=== PATIENT | female | born 1955 | race Caucasian/White ===

== ENCOUNTER → 2022-07-23 08:37 | Outpatient (CLI) | payer OTHER, SELFPAY ==
[2022-07-23 09:25] LABS: Appearance Urine UA CLEAR; Bilirubin Urine UA NEGATIVE (NEGATIVE); Color Urine UA YELLOW; Glucose Urine UA NEGATIVE (Negative); Ketones Urine UA NEGATIVE (NEGATIVE); Leukocyte Esterase Urine UA 3+ (NEGATIVE); Nitrite Urine UA NEGATIVE (Negative); Occult Blood Urine UA NEGATIVE (Negative); Protein Urine UA NEGATIVE (Negative); Specific Gravity Urine UA <=1.005 (1.000-1.035); Urobilinogen Urine UA 0.2 E.U./dL (0.2)
[2022-07-23 09:27] LABS: pH Urine UA 5.5 (4.5-8.0)
[2022-07-23 09:29] LABS: Bacteria Urine Moderate (10-30); Culture Indicated Urine Specimen Cultured; RBC Urine None Seen (0-5/HPF); Squamous Epithelial Cell Urine 1-5 /HPF (0-5/HPF); WBC Urine 5-10/HPF (0-5/HPF)
== END ==
PROVIDERS: PCP Family Medicine; Referring Provider Family Medicine; Visit Provider Family Medicine
DX: R31.9 Hematuria, unspecified (principal)
CPT/HCPCS: 81001; 87077; 87086; 87186

== ENCOUNTER → 2022-08-03 07:53 | Outpatient (CLI) | payer OTHER, SELFPAY ==
[2022-08-03 08:37] LABS: Add Manual Diff / Slide Review NO; Basophils Absolute Auto 0 /uL (0-100); Basophils Percent Auto 0.7 % (0-2); Eosinophils Absolute Auto 0 /uL (0-450); Eosinophils Percent Auto 1.5 % (2-4); Hematocrit 40.5 % (36-46); Hemoglobin 13.8 g/dL (12.0-16.0); Lymphocytes Absolute Auto 1000 /uL (1100-4500); Lymphocytes Percent Auto 30.6 % (25-40); Mean Corpuscular Hemoglobin 31.3 PG (26-34); Monocytes Absolute Auto 200 /uL (0-900); Monocytes Percent Auto 7.1 % (3-14); Neutrophils Absolute Auto 2000 /uL (1500-7000); Neutrophils Percent Auto 60.1 % (50-75); Platelet Count 264 X10^3/uL (150-400); White Blood Cell Count 3.4 X10^3/uL (4.5-11.0)
[2022-08-03 09:22] LABS: Alanine Aminotransferase 18 IU/L (<35); Albumin Globulin Ratio 1.6 (1.0-2.8); Alkaline Phosphatase 73 U/L (38-126); Aspartate Aminotransferase 27 IU/L (14-36); BUN Creatinine Ratio 24.6 (6-22); Bilirubin Total 0.5 mg/dL (0.2-1.3); Blood Urea Nitrogen 16 mg/dL (7-17); Calcium 9.1 mg/dL (8.4-10.2); Carbon Dioxide 32 mmol/L (22-32); Chloride 102 mmol/L (98-107); Estimated Glomerular Filt Rate > 60 mL/min (>60); Globulin 2.5 g/dL (1.7-4.1); Glucose 95 mg/dL (80-110); HEMOLYSIS < 15 (0-50); Sodium 139 mmol/L (137-145); Total Protein 6.5 g/dL (6.3-8.2)
[2022-08-03 09:25] LABS: Vitamin D 25 Hydroxy (D3) 43.8 ng/mL (30.0-100.0)
[2022-08-03 09:45] LABS: Ferritin 23 ng/mL (11-264)
== END ==
PROVIDERS: PCP Family Medicine; Referring Provider Family Medicine; Visit Provider Family Medicine
DX: E55.9 Vitamin D deficiency, unspecified (principal); E78.00 Pure hypercholesterolemia, unspecified
CPT/HCPCS: 36415; 80053; 82306; 82728; 85025

== ENCOUNTER → 2023-02-02 09:40 | Outpatient (CLI) | payer MEDICARE, OTHER, SELFPAY ==
[2023-02-02 11:12] LABS: Cholesterol 250 mg/dL (140-199); HDL Cholesterol 85 mg/dL (40-60); LDL Cholesterol Calculated 155 mg/dL (<100); Triglycerides 52 mg/dL (35-150)
[2023-02-02 11:16] LABS: High Sensitivity CRP - Cardiac < 0.3 mg/L (1.0-3.0)
== END ==
PROVIDERS: PCP Family Medicine; Referring Provider Family Medicine; Visit Provider Family Medicine
DX: E78.5 Hyperlipidemia, unspecified (principal)
CPT/HCPCS: 36415; 80061; 86140

== ENCOUNTER 2023-02-21 08:58 | Day surgery (SDC) | payer MEDICARE, OTHER, SELFPAY ==
[2023-02-21 09:28] VITALS: BMI 24.7
[2023-02-21 09:45] VITALS: BP 131/69; PULSE 61; RESP 16; TEMP 36.2; O2SAT 100
[2023-02-21] MEDS: LACTATED RINGERS 1,000 ML 42 ML IV (09:48)
--- NOTE | 2023-02-21 11:00 | P.HP_ITS ---
History of Present Illness History of Present Illness Date Patient Seen: 02/21/23 Time Patient Seen: 11:00 Chief complaint: Colonoscopy Narrative: h/o colon polyps, was on a 3 year recall, last scope was 6 years ago, no symptoms. [facility] Medical History Hearing decreased Sleep apnea (~2018) Surgical History Anesthesia History of section (~1986) Family History Father Accident Mother Cancer Hypertension Hyperlipidemia Social History household members: spouse Smoking Status: Former smoker Tobacco: How many years used: 10 alcohol intake: current substance use type: does not use Meds Home Medications and Allergies Home Medications Medication Instructions Recorded Confirmed Type estradiol 0.01% (0.1 mg/gram) 1 g vaginal 2XW #42.5 grams 01/25/23 02/21/23 Rx vaginal cream Allergies Allergy/AdvReac Type Severity Reaction Status Date / Time No Known Drug Allergies Allergy Verified 02/21/23 09:27 Review of Systems Review of Systems ROS: Yes All systems reviewed with the patient and are negative except as otherwise documented Exam Vital Signs (past 8 hours): - 02/21/23 09:45 Temperature 97.2 F L Pulse Rate 61 Respiratory Rate 16 Blood Pressure 131/69 Pulse Oximetry 100 Oxygen Delivery Method Room Air Oxygen Delivery Method Room Air Const General: cooperative and healthy appearing [facility] Head: normocephalic and atraumatic Eyes General: appearance normal, both eyes and all related structures Sclera: sclerae normal Neck Neck: trachea midline Resp Effort & Inspection: normal respiratory effort and able to speak in complete sentences Cardio Rate: regular rate Rhythm: regular rhythm GI Palpation: soft and No tender Skin General: no rashes or lesions noted and turgor normal Neuro General: patient alert, patient awake and patient oriented x3 Cognition: normal cognition Psych Mental Status: mental status grossly normal Judgment: judgment good Assessment & Plan Assessment & Plan narrative: H/o colon polyps Plan: colonoscopy with anesthesia. Time Spent With Patient Time with patient: less than 30 minutes
--- NOTE | 2023-02-21 11:18 | PM.OP.COLON ---
Operative Date/Time/Diagnoses Date of procedure: 02/21/23 Time of procedure: 11:18 Pre-op diagnosis: History of colon polyps Post-op diagnosis: same Procedure & Clinicians Study performed: Colonoscopy with anesthesia Same procedure as scheduled: Yes Indications: History of colon polyps Surgeon: Herlinda Rivas Procedure Notes Procedure in detail: Preop diagnosis: History of colon polyps Postop diagnosis: Same Operative procedure: Colonoscopy with anesthesia Surgeon: Chastity Rivas MD Findings: No polyps identified. No diverticulosis. Procedure: Patient placed in a lateral position. Rectal exam performed showing normal tone no masses. Colonoscope inserted into the rectum and advanced to ileocecal valve with minimal difficulty. Insufflation extraction of the scope including retroflex in the rectum and the above findings Impression: No polyps identified after a 6 year interval. No significant diverticulosis Plan: Repeat colonoscopy in 5 years unless otherwise indicated by change in clinical condition Specimen(s): none sent Complications: none Post-procedure Recommendations: Colonoscopy in 5 years Follow up: as needed Disposition: PACU
[2023-02-21 11:20] VITALS: BP 107/70; PULSE 69; RESP 13; TEMP 36.7; O2SAT 95
[2023-02-21 11:25] VITALS: BP 109/69; PULSE 65; RESP 13; O2SAT 98
[2023-02-21 11:31] VITALS: PULSE 69; RESP 13; O2SAT 98
[2023-02-21 11:38] VITALS: BP 113/72; PULSE 66; RESP 13; O2SAT 98
== END 2023-02-21 11:50 | disposition home or self-care (01) ==
PROVIDERS: PCP Family Medicine; Referring Provider Surgery; Visit Provider Surgery
PROC: 0DJD8ZZ Inspection of Lower Intestinal Tract, Via Natural or Artificial Opening Endoscopic (ICD-10-PCS; CPT 45378; principal; 2023-02-21 10:15)
DX: Z12.11 Encounter for screening for malignant neoplasm of colon (principal); Z86.010 Personal history of colon polyps
CPT/HCPCS: G0105; J2704

== ENCOUNTER 2023-10-25 14:17 | Emergency (ER) | payer MEDICARE, OTHER, SELFPAY ==
[2023-10-25] VITALS (7 sets, daily range): BP systolic 145–162; BP diastolic 69–75; PULSE 59–68; RESP 14–20; TEMP 37.1; O2SAT 95–99; BMI 24.7
--- NOTE | 2023-10-25 14:24 | DI.RAD.S_ITS ---
PROCEDURE: XR CHEST 1V INDICATIONS: chest pain TECHNIQUE: One view of the chest was acquired. COMPARISON: None. FINDINGS: Surgical changes and devices: None. Lungs and pleura: Lungs are clear. No pleural effusions or pneumothorax. Mediastinum: Mediastinal contours appear normal. Heart size is normal. Bones and chest wall: No suspicious bony lesions. Overlying soft tissues appear unremarkable. IMPRESSION: No acute cardiopulmonary abnormality is seen. Dictated by: Wil Bonilla M.D. on 10/25/2023 at 15:34 Approved by: Wil Bonilla M.D. on 10/25/2023 at 15:34
--- NOTE | 2023-10-25 14:24 | EKG_ITS ---
[address] [address] Test Date: 2023-10-25 Pat Name: Blossom Bowman Department: [facility] Room: Gender: Female Systems Administration Analyst: HERMES : 1955 Requested By: Order Number: [id number] Reading MD: Osmani Tom Measurements Intervals [place] Rate: 59 P: 64 MT: 134 QRS: 10 QRSD: 82 T: 46 QT: 414 QTc: 409 Interpretive Statements Sinus bradycardia Electronically Signed On 10-31-2023 9:08:29 PDT by Osmani Tom
[2023-10-25 15:00] LABS: Add Manual Diff / Slide Review NO; Basophils Absolute Auto 0 /uL (0-100); Basophils Percent Auto 0.5 % (0-2); Eosinophils Absolute Auto 100 /uL (0-450); Eosinophils Percent Auto 2.6 % (2-4); Hemoglobin 13.1 g/dL (12.0-16.0); Lymphocytes Absolute Auto 1200 /uL (1100-4500); Lymphocytes Percent Auto 29.9 % (25-40); Mean Corpuscular HGB Conc 33.6 % (30-36); Mean Corpuscular Hemoglobin 31.1 PG (26-34); Mean Corpuscular Volume 92.7 fL (80-100); Monocytes Absolute Auto 300 /uL (0-900); Neutrophils Absolute Auto 2300 /uL (1500-7000); Platelet Count 289 X10^3/uL (150-400); Red Blood Cell Count 4.21 X10^6/uL (4.0-5.2); Red Cell Distribution Width 13.8 % (11.6-14.8); White Blood Cell Count 3.9 X10^3/uL (4.5-11.0)
[2023-10-25 15:06] LABS: Prothrombin Time 11.5 SECONDS (9.4-12.5)
[2023-10-25 15:09] LABS: PTT Partial Thromboplastin Tim 31 SECONDS (25.1-36.5)
[2023-10-25 15:10] LABS: Alanine Aminotransferase 13 IU/L (<35); Albumin 4.2 g/dL (3.5-5.0); Albumin Globulin Ratio 1.8 (1.0-2.8); Alkaline Phosphatase 70 U/L (38-126); Aspartate Aminotransferase 26 IU/L (14-36); BUN Creatinine Ratio 22.5 (6-22); Bilirubin Total 0.4 mg/dL (0.2-1.3); Blood Urea Nitrogen 18 mg/dL (7-17); Calcium 8.7 mg/dL (8.4-10.2); Carbon Dioxide 28 mmol/L (22-32); Chloride 106 mmol/L (98-107); Creatine Kinase 69 U/L (30-135); Estimated Glomerular Filt Rate > 60 mL/min (>60); Globulin 2.3 g/dL (1.7-4.1); Glucose 96 mg/dL (80-110); HEMOLYSIS < 15 (0-50); Lipase 67 U/L (23-300); Magnesium 2.1 mg/dL (1.6-2.3); Sodium 140 mmol/L (137-145); Total Protein 6.5 g/dL (6.3-8.2)
[2023-10-25 15:21] LABS: NT-proBNP (BNP-Adult 18+) 68 pg/mL (<125); Troponin I < 0.012 ng/mL (0.01-0.034)
--- NOTE | 2023-10-25 16:35 | ED_ITS ---
HPI - Chest Pain General Chief Complaint: Chest Pain Stated Complaint: chest pressure, fatigue Time Seen by Provider: 10/25/23 16:34 Source: patient Mode of arrival: Ambulatory Limitations: no limitations History of Present Illness HPI narrative: 68-year-old female with dry cough since last week, has been having chest discomfort with coughing, some shortness of breath. No fevers or chills. No history of known coronary artery disease. No history of blood clots to legs or lungs. She does not have any leg pain or swelling symptoms. Related Data Previous Rx's Medication Instructions Recorded estradiol 0.01% (0.1 mg/gram) 1 g vaginal 2XW #42.5 grams 01/25/23 vaginal cream albuterol sulfate 90 mcg/actuation 2 puff inhalation Q6H PRN 10/25/23 aerosol inhaler shortness of breath or wheezing #6.7 grams Allergies Allergy/AdvReac Type Severity Reaction Status Date / Time No Known Drug Allergies Allergy Verified 02/21/23 09:27 Review of Systems Review of Systems Narrative: see HPI Patient History Medical History Hearing decreased Sleep apnea (~2018) Surgical History Anesthesia History of section (~1986) Family History Father Accident Mother Cancer Hypertension Hyperlipidemia Social History household members: spouse Smoking Status: Former smoker Tobacco: How many years used: 10 alcohol intake: current substance use type: does not use Smoking Status: Former smoker alcohol intake frequency: 0-2 drinks per day Substance Use Type: marijuana Exam Initial Vital Signs Initial Vital Signs: Vital Signs Temperature 98.7 F 10/25/23 14:19 Pulse Rate 68 10/25/23 14:19 Respiratory Rate 20 10/25/23 14:19 Blood Pressure 146/69 H 10/25/23 14:19 Pulse Oximetry 99 10/25/23 14:19 Oxygen Delivery Method Room Air 10/25/23 14:19 Const General: cooperative HENMT Head: normocephalic and atraumatic Nose: external nose normal Face and sinus: face symmetric Mouth: oral mucosae normal Throat: tonsils normal and uvula midline Eyes Eyelids: eyelids normal Conjunctivae: conjunctivae normal Sclera: sclerae normal Pupils: PERRL EOM: EOM intact bilaterally Neck Neck: normal visual inspection, trachea midline and No midline deformity Chest Chest: normal inspection of the chest Resp Effort & Inspection: normal respiratory effort, able to speak in complete sentences, no respiratory distress and no use of accessory muscles Auscultation: clear to auscultation bilaterally, no rales, no rhonchi and no wheezes Cardio Rate: regular rate Rhythm: regular rhythm Heart Sounds: no click, no gallops and no murmurs GI Inspection: non-distended Palpation: soft, No guarding and No tender Back/Spine/Pelvis Back: No CVA tenderness Cervical Spine: No pain with cervical ROM Skin General: no rashes or lesions noted and No jaundice Neuro General: patient alert and no focal motor deficits Speech: speech normal Extrem General: full ROM and no pedal edema Psych Attitude: cooperative Thought Content: normal Course Orders Ordered: Discontinued Medications Aspirin (Aspirin 81 Mg Chew Tab) 324 mg PO NOW ONE Stop: 10/25/23 14:25 Vital Signs Vital signs: Vital Signs - 8 hr 10/25/23 14:19 10/25/23 14:29 10/25/23 14:30 Temperature 98.7 F Pulse Rate 68 60 63 Respiratory Rate 20 Blood Pressure 146/69 H Pulse Oximetry 99 99 98 Oxygen Delivery Method Room Air 10/25/23 14:47 10/25/23 14:47 10/25/23 15:00 Temperature Pulse Rate 62 62 Respiratory Rate 17 16 Blood Pressure 160/75 H Pulse Oximetry 98 98 Oxygen Delivery Method 10/25/23 15:00 10/25/23 15:30 10/25/23 15:30 Temperature Pulse Rate 59 L Respiratory Rate 15 Blood Pressure 162/71 H 145/72 H Pulse Oximetry 98 Oxygen Delivery Method 10/25/23 16:00 10/25/23 16:00 Temperature Pulse Rate 61 Respiratory Rate 14 Blood Pressure 150/71 H Pulse Oximetry 99 Oxygen Delivery Method MDM - Chest Pain Lab Data Attestation: I reviewed the patient's lab results. 10/25/23 14:45 10/25/23 14:45 Labs: Lab Results 10/25/23 10/25/23 Range/Units 14:45 14:57 WBC 3.9 L (4.5-11.0) X10^3/uL RBC 4.21 (4.0-5.2) X10^6/uL Hgb 13.1 (12.0-16.0) g/dL Hct 39.0 (36-46) % MCV 92.7 (80-100) fL MCH 31.1 (26-34) PG MCHC 33.6 (30-36) % RDW 13.8 (11.6-14.8) % Plt Count 289 (150-400) X10^3/uL Neut % (Auto) 60.0 (50-75) % Lymph % (Auto) 29.9 (25-40) % [place] % (Auto) 7.0 (3-14) % Eos % (Auto) 2.6 (2-4) % Baso % (Auto) 0.5 (0-2) % Neut # (Auto) 2300 (3443-8966) /uL Lymph # (Auto) 1200 (3212-6957) /uL [place] # (Auto) 300 (0-900) /uL Eos # (Auto) 100 (0-450) /uL Baso # (Auto) 0 (0-100) /uL PT 11.5 (9.4-12.5) SECONDS INR 1.0 (0.9-1.3) APTT 31 (25.1-36.5) SECONDS Sodium 140 (137-145) mmol/L Potassium 4.0 (3.4-5.1) mmol/L Chloride 106 (98-107) mmol/L Carbon Dioxide 28 (22-32) mmol/L BUN 18 H (7-17) mg/dL Creatinine 0.80 (0.52-1.04) mg/dL Estimated GFR > 60 (>60) mL/min BUN/Creatinine Ratio 22.5 H (6-22) Glucose 96 (80-110) mg/dL Calcium 8.7 (8.4-10.2) mg/dL Magnesium 2.1 (1.6-2.3) mg/dL Total Bilirubin 0.4 (0.2-1.3) mg/dL AST 26 (14-36) IU/L ALT 13 (<35) IU/L Alkaline Phosphatase 70 (38-126) U/L Total Creatine Kinase 69 (30-135) U/L Troponin I < 0.012 < 0.012 (0.01-0.034) ng/mL NT-Pro-B Natriuret Pep 68 (<125) pg/mL Total Protein 6.5 (6.3-8.2) g/dL Albumin 4.2 (3.5-5.0) g/dL Globulin 2.3 (1.7-4.1) g/dL Albumin/Globulin Ratio 1.8 (1.0-2.8) Lipase 67 (23-300) U/L ECG Data Attestation: I personally reviewed and interpreted this ECG as follows: Interpretation: Sinus bradycardia with rate of 59, no obvious ST segment elevation or depression symptoms. NV 134, QRS 82, QTC 409. MDM Narrative Medical decision making narrative: URI symptoms, chest pain with cough, CXR negative, EKG and serial troponins negative. Doubt ACS. She was interested in trial of Albuterol MDI to help control cough symptoms when offered, sent to her pharmacy. Discharge Plan Departure Patient Disposition: Home Clinical Impression: Upper respiratory infection, Chest pain Activity Restrictions/Additional Instructions: Recent cough, chest discomfort with coughing, some sensation of shortness a breath. EKG and blood testing not suggestive of heart attack at this time. Chest x-ray negative. We did discuss COVID swab testing, declined for now. Consider use of inhaler to help with cough trauma symptoms. Use [id number] Robitussin DM as needed for cough control symptoms. Consider recheck of symptoms with your regular provider if symptoms not better in the next couple of days. Return to this/nearest emergency department for any change worsening symptoms or any concerns prior Prescriptions: New albuterol sulfate 90 mcg/actuation HFA aerosol inhaler 2 puff inhalation Q6H PRN (Reason: shortness of breath or wheezing) Qty: 6.7 0RF No Action estradiol 0.01 % (0.1 mg/gram) cream 1 g vaginal 2XW Qty: 42.5 0RF Referrals: Juanita Fajardo DO [Primary Care Provider] - Stand Alone Forms: Patient Portal/API
[2023-10-25 17:24] LABS: Troponin I < 0.012 ng/mL (0.01-0.034)
== END 2023-10-25 17:40 | disposition home or self-care (01) ==
PROVIDERS: Emergency Provider Emergency Medicine; PCP Family Medicine
DX: J06.9 Acute upper respiratory infection, unspecified (principal); R07.9 Chest pain, unspecified; R05.9 Cough, unspecified
CPT/HCPCS: 36415; 71045; 80053; 82550; 83690; 83735; 83880; 84484; 85025; 85610; 85730; 93005; 99283; 99284

== ENCOUNTER → 2024-09-14 14:13 | Outpatient (CLI) | payer MEDICARE, OTHER, SELFPAY ==
--- NOTE | 2024-09-14 14:14 | DI.MG.S_ITS ---
MM screening mammo BI: 09/14/2024. BI-RADS: 1 CLINICAL: 68-year old female for bilateral screening mammogram. Tyrer-Cuzick lifetime risk of 8.0%. No personal or first-degree family history of breast cancer. History of ovarian cancer in one first-degree relative. PRIOR EXAMS: No prior examinations available. MAMMOGRAPHY TECHNIQUE: 2D and 3D (tomosynthesis) digital mammographic views obtained, with additional images as needed for full coverage. Current study was also evaluated with a Computer Aided Detection (CAD) system. DENSITY C. The breasts are heterogeneously dense, which may obscure small masses. MAMMOGRAPHY FINDINGS Bilateral: No suspicious mass, asymmetry, microcalcification, or other abnormality seen. IMPRESSION: * No evidence of malignancy. RECOMMENDATIONS Bilateral * Annual screening mammography. OVERALL ASSESSMENT CATEGORY BI-RADS-1: Negative. The [employer] recommends annual screening mammography beginning at age 40 for women with average risk of breast cancer. ELECTRONICALLY SIGNED: Holly Green M.D. on 09/28/2024 at 09:31:07 AM PT Interpreting Station ID: [id number]
== END ==
LOC: MAMMO 14:14
PROVIDERS: PCP Family Medicine; Referring Provider Family Medicine; Visit Provider Family Medicine
DX: Z12.31 Encounter for screening mammogram for malignant neoplasm of breast (principal); Z80.41 Family history of malignant neoplasm of ovary; R92.333 Mammographic heterogeneous density, bilateral breasts
CPT/HCPCS: 77063; 77067

== ENCOUNTER → 2024-11-28 07:03 | Outpatient (CLI) | payer MEDICARE, OTHER, SELFPAY ==
[2024-11-28 07:42] LABS: Add Manual Diff / Slide Review NO; Hematocrit 42.0 % (36-46); Hemoglobin 14.1 g/dL (12.0-16.0); Lymphocytes Absolute Auto 1300 /uL (1100-4500); Mean Corpuscular HGB Conc 33.6 % (30-36); Mean Corpuscular Hemoglobin 31.0 PG (26-34); Mean Corpuscular Volume 92.3 fL (80-100); Platelet Count 245 X10^3/uL (150-400)
[2024-11-28 08:10] LABS: Vitamin D 25 Hydroxy (D3) 29.8 ng/mL (30.0-100.0)
[2024-11-28 08:25] LABS: TSH w/ Reflex to FT4 1.99 uIU/mL (0.47-4.68)
[2024-11-28 08:30] LABS: Alanine Aminotransferase 14 IU/L (<35); Albumin 4.3 g/dL (3.5-5.0); Albumin Globulin Ratio 1.9 (1.0-2.8); Alkaline Phosphatase 62 U/L (38-126); Blood Urea Nitrogen 19 mg/dL (7-17); Calcium 9.0 mg/dL (8.4-10.2); Carbon Dioxide 27 mmol/L (22-32); Chloride 107 mmol/L (98-107); Cholesterol 243 mg/dL (140-199); Estimated Glomerular Filt Rate > 60 mL/min (>60); Globulin 2.3 g/dL (1.7-4.1); Glucose 89 mg/dL (70-99); HDL Cholesterol 96 mg/dL (40-60); HEMOLYSIS 25 (0-50); Potassium 4.4 mmol/L (3.4-5.1); Sodium 141 mmol/L (137-145); Total Protein 6.6 g/dL (6.3-8.2); Triglycerides 55 mg/dL (35-150)
[2024-11-28 09:04] LABS: Ferritin 43 ng/mL (11-264)
--- NOTE | 2024-11-28 11:24 | DI.RAD.S_ITS ---
PROCEDURE: XR DEXA AXIAL SKELETON INDICATIONS: screen COMPARISON: None. FINDINGS: Lumbar Spine (L1, L3, L4): Bone mineral density of 0.832 g/cm2, T score is - 2.0. Left Femoral Neck: Bone mineral density 0.664 g/cm2, T score -1.7. Left Hip: Bone mineral density 0.734 g/cm2, T score -1.7 Fracture Risk Calculation (when applicable): 10-year fracture risk of a major osteoporotic fracture 9.7 percent and of a hip fracture 16 percent. 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 Follow-up guidelines as follows: Osteoporosis: Consider a repeat DEXA and Vertebral Fracture Assessment (VFA) exam in 2 years or sooner if medically necessary, to reassess this patient's status. Osteopenia: Consider a repeat DEXA in 2-3 years to reassess this patient's status, or if there is a new clinical indication. Normal: Consider a repeat DEXA in 5 years or sooner, or if there is a new clinical indication. All treatment decisions require clinical judgment and consideration of individual patient factors, including patient preferences, comorbidities, previous drug use, risk factors not captured in the FRAX model (e.g., frailty, falls, vitamin D deficiency, increased bone turnover, interval significant decline in bone density ) and possible under- or over-estimation of fracture risk by FRAX. In addition, the NOF Guide recommends that FDA-approved medical therapies be considered in postmenopausal women and men age >= 50 years with a: * Hip or vertebral (clinical or morphometric) fracture * T-score of <=-2.5 at the spine or hip * Ten-year fracture probability by FRAX of >= 3% for hip fracture or >=20% for major osteoporotic fracture. Dictated by: Keily Olson M.D. on 11/28/2024 at 17:21 Approved by: Keily Olson M.D. on 11/28/2024 at 17:23
[2024-11-29 05:35] LABS: CRP, High Sensitivity 0.32 mg/L (0.00-3.00)
== END ==
PROVIDERS: PCP Family Medicine; Referring Provider Family Medicine; Visit Provider Family Medicine
DX: E55.9 Vitamin D deficiency, unspecified (principal); E83.19 Other disorders of iron metabolism; E78.5 Hyperlipidemia, unspecified; Z83.49 Family history of other endocrine, nutritional and metabolic diseases; E78.00 Pure hypercholesterolemia, unspecified; M81.0 Age-related osteoporosis without current pathological fracture; M85.88 Other specified disorders of bone density and structure, other site
CPT/HCPCS: 36415; 77080; 80053; 80061; 82306; 82728; 84443; 85025; 86140